=== PATIENT | female | born 1980 | race Caucasian/White ===

== ENCOUNTER 2017-11-05 16:35 | Emergency (ER) | payer OTHER ==
[2017-11-05 17:08] VITALS: BP 127/80
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
--- NOTE | 2017-11-05 21:52 | EKG REPORT ---
SEVERITY:- NORMAL ECG - SINUS RHYTHM : Confirmed by: Marlen Huang MD 05-Nov-2017 21:51:23
== END 2017-11-05 18:01 | disposition home or self-care (01) ==
LOC: ER 16:35
DX: Z71.1 Person with feared health complaint in whom no diagnosis is made (principal)
CPT/HCPCS: 71046; 93005; 93010; 99283

== ENCOUNTER → 2018-06-27 | Outpatient (CLI) | payer SELFPAY ==
[2018-06-27 17:54] LABS: ABSOLUTE BASOPHILS # (AUTO) 0.1 10^3/uL (0.0-0.2); ABSOLUTE EOSINOPHILS # (AUTO) 0.1 10^3/uL (0.0-0.6); ABSOLUTE LYMPHOCYTES (AUTO) 1.8 10^3/uL (0.5-4.7); ABSOLUTE MONOCYTES (AUTO) 0.7 10^3/uL (0.1-1.4); ABSOLUTE NEUT (AUTO) 3.4 10^3/uL (1.7-8.2); BASOPHILS % (AUTO) 0.8 % (0-2); EOSINOPHILS % (AUTO) 1.1 % (0-6); HEMOGLOBIN 13.2 g/dL (12.0-15.5); LYMPHOCYTES % (AUTO) 30.6 % (13-45); MEAN CORPUSCULAR HEMOGLOBIN 30.8 pg (27.0-33.4); MEAN CORPUSCULAR HGB CONC 33.9 g/dL (32.0-36.0); MEAN CORPUSCULAR VOLUME 91 fl (80-97); PLATELET COUNT 220 10^3/uL (150-450); RED BLOOD COUNT 4.29 10^6/uL (3.72-5.28); RED CELL DISTRIBUTION WIDTH 12.9 % (11.5-14.0); SEGMENTED NEUTROPHILS % (AUTO) 56.5 % (42-78); TOTAL CELLS COUNTED % (AUTO) 100 %
[2018-06-27 18:22] LABS: ALANINE AMINOTRANSFERASE 98 U/L (9-52); ALBUMIN 4.2 g/dL (3.5-5.0); ALKALINE PHOSPHATASE 59 U/L (38-126); ANION GAP 12 (5-19); ASPARTATE AMINO TRANSFERASE 66 U/L (14-36); BILIRUBIN,DIRECT 0.2 mg/dL (0.0-0.4); BILIRUBIN,TOTAL 0.5 mg/dL (0.2-1.3); BLOOD UREA NITROGEN 14 mg/dL (7-20); CALCIUM 10.2 mg/dL (8.4-10.2); CARBON DIOXIDE 24 mmol/L (22-30); CHLORIDE 104 mmol/L (98-107); GLUCOSE 100 mg/dL (75-110); POTASSIUM 4.4 mmol/L (3.6-5.0); SODIUM 140.4 mmol/L (137-145); TOTAL PROTEIN 7.4 g/dL (6.3-8.2)
== END ==
LOC: LAB 17:37
PROVIDERS: ATTEND Nurse Practitioner Acute Care
DX: R06.02 Shortness of breath (principal); R42 Dizziness and giddiness
CPT/HCPCS: 36415; 80053; 84443; 85025

== ENCOUNTER 2018-07-23 11:53 | Day surgery (SDC) | payer OTHER ==
[2018-07-23] MEDS ORDERED: ONDANSETRON HCL INJ/PF 4 MG/2 ML SDV ONE (11:58)
[2018-07-23] MEDS ORDERED: DIPHENHYDRAMINE HCL 50 MG/ML VIAL ONE (11:58)
[2018-07-23] MEDS ORDERED: GLUCAGON,HUMAN RECOMB 1 MG INJ ONE (11:59)
[2018-07-23] MEDS ORDERED: EPINEPHRINE INJ 1 MG/10 ML DISP.SYRIN ONE (11:59)
[2018-07-23] MEDS ORDERED: FLUMAZENIL INJ 0.5 MG/5 ML VIAL ONE (11:59)
[2018-07-23] MEDS ORDERED: NALOXONE HCL INJ/PF 0.4 MG/1 ML SDV ONE (11:59)
[2018-07-23] MEDS: MIDAZOLAM 2 MG/2 ML INJ ONE ×2 (12:18→12:23)
[2018-07-23] MEDS: FENTANYL CITRATE INJ/PF 100 MCG/2 ML AMPUL ONE ×2 (12:20→12:25)
--- NOTE | 2018-07-23 12:37 | Operative Report ---
Operative Report DATE OF SURGERY: 07/23/18 Operative Report: The risks benefits and alternatives of the procedure explained to the patient in detail and informed consent is obtained.A GIF Olympus video scope was inserted into the patient's mouth and hypopharynx, the esophagus is identified intubated and insufflated, the scope was then advanced through the esophagus stomach and duodenum ,retroflexion maneuver is done, the esophagus stomach and first and second portions of the duodenum examined. PREOPERATIVE DIAGNOSIS: Dysphagia POSTOPERATIVE DIAGNOSIS: Schatzki's ring that is broken. Hiatal hernia. Gastritis status post biopsy for Helicobacter pylori OPERATION: EGD with biopsy SURGEON: RAJINDER ALAMO ANESTHESIA: Moderate Sedation - 4 mg of Versed, 100 mcg of fentanyl. Conscious sedation monitoring time 30 minutes. TISSUE REMOVED OR ALTERED: As noted above. COMPLICATIONS: None. ESTIMATED BLOOD LOSS: None. INTRAOPERATIVE FINDINGS: As noted above. PROCEDURE: Patient tolerated the procedure well. No immediate postprocedure complications are noted. Patient is discharged in good condition. Discharge date 07/23/2018. Discharge diet: Regular. Discharge activity: Regular. 2 to 3-week follow-up to discuss findings. Patient is instructed to call the office or proceed to the emergency room should he be any further problems or questions. Wait on the biopsies.
[2018-07-23 13:59] VITALS: BP 102/68
== END 2018-07-23 13:35 | disposition home or self-care (01) ==
LOC: END 11:53
PROVIDERS: ATTEND Internal Medicine Gastroenterology
DX: K22.2 Esophageal obstruction (principal); K44.9 Diaphragmatic hernia without obstruction or gangrene; K29.50 Unspecified chronic gastritis without bleeding; M79.7 Fibromyalgia
CPT/HCPCS: 43239; 88305 ×2; J2250; J3010; J0171; J1200; J1610; J2310; J2405; J3490

== ENCOUNTER 2019-01-21 11:08 | Day surgery (SDC) | payer OTHER ==
[2019-01-21] MEDS ORDERED: CEFAZOLIN 2 GM/D5W RTU 2 GM/50 ML RTUPB IV ONE (11:27)
[2019-01-21] MEDS ORDERED: FENTANYL CITRATE INJ/PF 100 MCG/2 ML AMPUL ONE (11:51)
[2019-01-21] MEDS ORDERED: MIDAZOLAM 2 MG/2 ML INJ ONE (11:51)
[2019-01-21] MEDS ORDERED: ONDANSETRON HCL INJ/PF 4 MG/2 ML SDV ONE (11:51)
[2019-01-21] MEDS ORDERED: DEXAMETHASONE SOD PHOS INJ 10 MG/1 ML VIAL ONE (11:51)
[2019-01-21] MEDS ORDERED: PROPOFOL INJ 200 MG/20 ML VIAL IV ONE (11:52)
[2019-01-21] MEDS ORDERED: LIDOCAINE 2%/EPINEPHRINE INJ 1.7 ML CARTRIDGE ONE ×2 (11:58→13:59)
[2019-01-21] MEDS ORDERED: COCAINE HCL 4% TOPICAL SOLN 4 ML ONE (11:58)
[2019-01-21] MEDS ORDERED: OXYMETAZOLINE HCL 0.05% NASAL SPRAY 15 ML BOTTLE ONE (11:58)
[2019-01-21] MEDS: BACITRACIN ZINC OINTMENT 15 GM ONE ×2 (13:39)
--- NOTE | 2019-01-21 14:06 | Operative Report ---
Operative Report-[facility] Operative Report: Date: 21 January 2019 History: presents with a history of nasal dyspnea. Physical exam revealed a deviated nasal septum, bilateral nasal vestibular stenosis and inferior turbinate hypertrophy. Presents today for a septoplasty, repair nasal vestibular stenosis and turbinate reduction Pre-operative diagnosis: 1. Deviated nasal septum 2. Inferior turbinate hypertrophy 3. Bilateral nasal vestibular stenosis Post operative diagnosis: same as above. Procedure: 1. Nasal septoplasty 2. Inferior turbinate reduction, right side 3 . Inferior turbinate reduction, left side 4. Repair nasal vestibular stenosis, right side (CPT: 94515) 5. Repair nasal vestibular stenosis, left side (CPT: 18908) Surgeon: Fito Mcnair MD, FACS, [facility] Anesthia: KASANDRA Description of the procedure: After receiving informed consent, the patient was brought to the operating room and placed supine on the operating table. After successful insuction and intubation by anesthesia, cottonoids soaked with 4% cocaine replaced into each nasal cavity for approximately five minutes. They were removed andthe septum along with the inferior turbinate were injections with 2% Xylocaine with 1:100,000 epinephrine. The cottonoids were replaced. The patient was then prepped and draped in a sterile fashion. The cottonoids where then removed. A number 15 blade was used to make a herman transfixtion incision on the left side. Next using a Michel and then A George elevator, a mucoperichondrial/mucoperiosteal flap was elevated back to the sphenoid rostrum. This was then elevated onto the nasal floor. A mucoperichondrial flap was elevated around the caudal edge of the septum and onto the right side. This e xposed both sides of the cartilaginous/osseous septum. The osseocartilaginous junction was and a mucoperiosteal flap was elevated on the right side. Iglesias scissors were used to make horizontal cuts in the perpendicular plate of the ethmoid bone, superiorly and inferiorly. Prospect-Pratt forceps were used to remove this. A vomeroethmoid spur was identified and the mucosa was carefully dissected from it. A V-chisel was used to remove this spur. An inferior cartilage spur was removed using a D knife . Maxillary crest spur was removed using a V chisel. Canterbury-Fay's were used to remove a high septal deflection in the area of the internal nasal valve. The septum was viewed with the flaps in place and found to be relatively straight. The root of the middle turbinates were visible on both sides. The herman transfixion incision was closed using 4-0 chromic and a 4-0 plain gut wip stitch was used to secure the septal flaps. Attention was then directed to the nasal valve area on the right, where the Vivaer nasal airway remodeling system was used to repair bilateral nasal vestibular stenosis. The handpiece was placed superiorly at the caudal margin of the upper lateral cartilage and the device was activated. This was repeated 2 more times marching inferiorly towards the piriform aperture. A similar procedure was done on the left. Attention was then directed to the inferior turbinates where an inferior turbinate reduction was performed bilaterally. The Celon was used to perform an intramural cauterization bilaterally. Then each turbinate was medialized and then lateralized using a Sayer elevator . Silicon splints coated with bacitracin were placed into each nasal cavity and secured with a 2-0 prolene. Afrin soaked cottonoids were placed into each nasal cavity and secured to each other in front of the nose. The patient was then given back to anesthesia who successfully extubated them. The patient tolerated the procedure well without any complications. Estimated blood loss: 20 mL Fluids: 800 mL The patient was transferred to the post anesthesia care unit in stable condition with spontaneous respirations.
== END 2019-01-21 14:50 | disposition home or self-care (01) ==
LOC: SC 11:08
PROVIDERS: ATTEND Otolaryngology
DX: J34.2 Deviated nasal septum (principal); J34.3 Hypertrophy of nasal turbinates; J34.89 Other specified disorders of nose and nasal sinuses; Z79.51 Long term (current) use of inhaled steroids; Z79.899 Other long term (current) drug therapy; J45.909 Unspecified asthma, uncomplicated; I10 Essential (primary) hypertension; M79.7 Fibromyalgia
CPT/HCPCS: 30465; 30802; J2250; J3490 ×4; J3010; J2405; J2704; J1100; J0690; 160